=== PATIENT | male | born 1990 | race African-American/Black ===

== ENCOUNTER 2017-04-03 21:06 | Emergency (ER) | payer OTHER ==
[2017-04-03 21:19] VITALS: BP 138/87
--- NOTE | 2017-04-03 21:45 | XRAY Preliminary Report ---
Exam: XR Wrist 4 View LT IMPRESSION: Distal radius and ulna fractures without significant angulation. [facility] SITE ID: [id number]
--- NOTE | 2017-04-03 21:48 | XRAY Report ---
EXAM: LEFT WRIST RADIOGRAPHY EXAM DATE: 04/03/2017 09:32 PM. CLINICAL HISTORY: Injury to L wrist. COMPARISON: None. TECHNIQUE: 4 views. FINDINGS: Bones: Positive for an intra-articular fracture of the distal radius. There is no significant angulat ion or displacement. There is a fracture of the base of the ulnar styloid with 2 mm of displacement. Joints: No dislocation. Soft Tissues: There is generalized soft tissue swelling. IMPRESSION: Distal radius and ulna fractures without significant angulation. [facility] Referring Provider Line: [phone] SITE ID: [id number]
[2017-04-03] MEDS ORDERED: ACETAMINOPHEN 500 MG TABLET PO STA (21:53)
--- NOTE | 2017-04-03 21:55 | ED Physician Documentation ---
PD HPI UPPER EXT INJURY - Stated complaint Stated Complaint: L WRIST INJURY - Chief complaint Chief Complaint: Ext Problem - History obtained from History obtained from: Patient - History of Present Illness Location: Other (Right-handed gentleman was playing flag football tonight and fell onto an outstretched left wrist with moderate wrist and mild elbow pain on that side, no other injuries. 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[employer].) Review of Systems Constitutional: reports: Reviewed and negative Cardiac: reports: Reviewed and negative Respiratory: reports: Reviewed and negative PD PAST MEDICAL HISTORY - Past Medical History Past Medical History: No - Past Surgical History Past Surgical History: No - Present Medications Home Medications: Ambulatory Orders Medication Instructions Recorded Confirmed No Known Home Medications [No 04/03/17 04/03/17 Known Home Medications] - Allergies Allergies/Adverse Reactions: Allergies Allergy/AdvReac Type Severity Reaction Status Date / Time No Known Drug Allergies Allergy Verified 04/03/17 21:13 - Social History Does the pt smoke?: Yes Smoking Status: Current some day smoker Does the pt drink ETOH?: Yes ETOH Use: Wine, Beer, Liquor Does the pt have substance abuse?: No - Immunizations Immunizations are current?: Yes - POLST Patient has POLST: No PD ED PE NORMAL - Vitals Vital signs reviewed: Yes - General General: Alert and oriented X 3, No acute distress - Neck Neck: Supple, no meningeal sign, No bony TTP - Extremities Extremities: Other (Left elbow is mildly tender over the medial epicondyle and cannot quite straighten at the elbow. He is moderately tender over the dorsal wrist without deformity or neurovascular compromise in the hand.) - Neuro Neuro: Alert and oriented X 3, Normal speech - Psych Psych: Normal mood, Normal affect Results - Vitals Vitals: Vital Signs - 24 hr 04/03/17 21:12 Temperature 36.4 C L Heart Rate 73 Respiratory 16 Rate Blood Pressure 138/87 H O2 Saturation 100 Oxygen O2 Source Room air - Rads (name of study) Left wrist Radiology: EMP read contemporaneously (Distal radius and ulnar styloid fractures without angulation) L elbow Radiology: EMP read contemporaneously (negative) Procedures - Splint (location) Left arm Splint applied by: Tech Type of splint: Fiberglass, Long arm, Sugar tong Other: Patient tolerated well, No complications, Neurovascular intact Departure - Departure Disposition: 01 Home, Self Care Clinical Impression: Colles' fracture of left radius Qualifiers: Encounter type: initial encounter Fracture type: closed Qualified Code(s): S52.532A - Colles' fracture of left radius, initial encounter for closed fracture Sprain of elbow, left Qualifiers: Encounter type: initial encounter Qualified Code(s): S53.402A - Unspecified sprain of left elbow, initial encounter Condition: Good Record reviewed to determine appropriate education?: Yes Instructions: ED Fx Forearm Radius Ulna No Redu Requ Comments: Keep the splint on and dry,[place] CD [place]. Tylenol as needed for pain per package instructions. Your blood pressure was elevated today on check into the emergency department. This does not mean that you have hypertension, it is a common phenomenon to come to the emergency department and have elevated blood pressure. I recommend that she see your primary care physician within the week to have it rechecked when you are feeling better. Discharge Date/Time: 04/03/17 22:53
[2017-04-03] MEDS ORDERED: ACETAMINOPHEN 500 MG TABLET PO ONE (22:00)
--- NOTE | 2017-04-03 23:04 | XRAY Preliminary Report ---
Exam: XR Elbow 3 View LT IMPRESSION: 1. No acute abnormality seen in the elbow. [facility] SITE ID: [id number]
--- NOTE | 2017-04-03 23:07 | XRAY Report ---
EXAM: LEFT ELBOW RADIOGRAPHY EXAM DATE: 04/03/2017 10:31 PM. CLINICAL HISTORY: Elbow pain after injury. COMPARISON: None. TECHNIQUE: 3 views. FINDINGS: Bones: No acute fracture seen. Joints: No dislocation. Joint spaces appear intact. No joint effusion. Soft Tissues: Grossly unremarkable. IMPRESSION: 1. No acute abnormality seen in the elbow. [facility] Referring Provider Line: [phone] SITE ID: [id number]
== END 2017-04-03 22:53 | disposition home or self-care (01) ==
LOC: ED 21:06
DX: S52.532A Colles' fracture of left radius, initial encounter for closed fracture (principal); S53.402A Unspecified sprain of left elbow, initial encounter; W18.30XA Fall on same level, unspecified, initial encounter; Y93.61 Activity, american tackle football; R03.0 Elevated blood-pressure reading, without diagnosis of hypertension
CPT/HCPCS: 29105; 73080; 73110; 99283; A9270

== ENCOUNTER 2017-04-13 12:08 | Day surgery (SDC) | payer OTHER ==
[2017-04-13] MEDS ORDERED: ACETAMINOPHEN 1,000 MG/100 ML 100 ML IV ONE ×2 (13:41→17:00)
[2017-04-13] MEDS ORDERED: ceFAZolin 2 GM/50 ML 50 ML IV ONE (13:42)
[2017-04-13] MEDS ORDERED: PROPOFOL 200 MG/20 ML VIAL IVP ONE (17:00)
[2017-04-13] MEDS ORDERED: MIDAZOLAM 2 MG/2 ML VIAL IVP ONE (17:00)
[2017-04-13] MEDS ORDERED: DEXAMETHASONE 4 MG/ML VIAL IVP ONE (17:00)
[2017-04-13] MEDS ORDERED: ONDANSETRON 4 MG/2 ML VIAL IVP ONE (17:00)
[2017-04-13] MEDS ORDERED: fentaNYL 100 MCG/2 ML VIAL IVP ONE (17:00)
[2017-04-13] MEDS ORDERED: ROPIVACAINE 0.5% PF 20 ML AMPULE EP ONE (17:00)
[2017-04-13] MEDS ORDERED: LACTATED RINGERS 1,000 ML IV ONE ×3 (17:14→21:25)
--- NOTE | 2017-04-13 22:21 | XRAY Preliminary Report ---
Exam: XR Wrist 3 View LT IMPRESSION: 1. Satisfactory radial fracture fixation. 2. Mildly displaced ulnar styloid base fracture. [facility] SITE ID: [id number]
--- NOTE | 2017-04-13 22:24 | XRAY Report ---
EXAM: LEFT WRIST RADIOGRAPHY EXAM DATE: 04/13/2017 09:40 PM. CLINICAL HISTORY: Post op left wrist surgery. COMPARISON: 04/03/2017. TECHNIQUE: 3 views. FINDINGS: Bones: Plate and screws bridge a distal radial fracture. Stable mildly displaced ulnar styloid fractu re remains to cast. Joints: Normal. No subluxations. IMPRESSION: 1. Satisfactory radial fracture fixation. 2. Mildly displaced ulnar styloid base fracture. [facility] Referring Provider Line: [phone] SITE ID: [id number]
[2017-04-13 22:31] VITALS: BP 140/72
--- NOTE | 2017-04-14 20:48 | OPERATIVE REPORT ---
DATE OF SURGERY: 04/13/2017 00:00:00 PREOPERATIVE DIAGNOSIS: Left distal radius fracture, intraarticular, 3 pieces. POSTOPERATIVE DIAGNOSIS: Left distal radius fracture, intraarticular, 3 pieces. NAME OF PROCEDURE: Open reduction, internal fixation of left distal radius fracture, intraarticular, with greater than 3 fragments; CPT 54114. SURGEON: John Moreno MD [employer] SALES MANAGER: Jessica Degroot MD POSTOPERATIVE PLAN: Same day surgery discharge. Sugar-tong splint until 2 weeks. From 2-6 weeks, short arm cast. Gradual range of motion and strengthening after 6 weeks. INDICATION FOR SURGERY: This is a 27-year-old male who sustained a left distal radius fracture while playing flag football on 04/04/2017 when he fell onto his outstretched hand. He was brought to the emergency room and diagnosed and placed into a temporary splint. He was seen in clinic a few days later and a provisional reduction was attempted. He was indicated for surgery secondary to displacement greater than 2 mm of multiple articular fragments, and loss of radial height inclination and tilt. Risks, benefits, alternatives were discussed to include pain, bleeding, infection, damage to nearby structures, specifically SBRN and extensor tendons. The need for further surgery was discussed to include the need for plate removal because of tendon irritation. The risks of anesthesia were discussed up to and including . The patient agreed for surgery and signed a written consent form. SURGICAL FINDINGS 1. A large radial styloid fragment that was impacted and displaced. 2. A smaller scaphoid facet dorsal fracture which was impacted. Both of these were lifted, bone grafted, and fixed. IMPLANTS 1. Small Synthes dorsal L plate. 2. Small radial styloid plate by [employer]. 3. Eight associated screws. ANESTHESIA: General. ANTIBIOTICS: Weight-based Ancef. ESTIMATED BLOOD LOSS: 50 mL. URINE OUTPUT: Not recorded. INTRAVENOUS FLUIDS: 1600 TOURNIQUET TIME: 120 minutes at 250 mmHg. SPECIMENS: None. COMPLICATIONS: None. DISPOSITION: Stable to PACU. DEEP VENOUS THROMBOSIS PROPHYLAXIS: Early, frequent ambulation. PROCEDURE IN DETAIL: The patient was met in the preoperative hold area on the day of surgery, operative extremity was signed, consent was verified, he desired to proceed. He was brought to the operating room and surrendered to anesthesia. Once general anesthesia had been obtained, he was placed in the supine position. Prior to being brought to the operating room, the patient was given a regional block by the anesthesia team. All bony prominences were well- padded. The limb was then prepped and draped in the standard sterile fashion. A surgical time-out was held, we confirmed the patient's procedure, identity, allergies, antibiotics, and images; all were in agreement and we proceeded. An Esmarch was used to exsanguinate the limb, and the tourniquet was elevated to 250 mmHg. We began our approach to the radial styloid fragment and made a 6 cm incision overlying the radial styloid just volar to the first dorsal compartment. Branches of SBRN were protected throughout the procedure. Sharp and blunt dissection was carried down to the first dorsal compartment. Hemostasis was obtained with bipolar electrocautery. The first dorsal compartment was opened. The tendons were retracted dorsally. The floor of the first dorsal compartment was opened as well and the fracture was identified. It was disimpacted with a wide osteotome and brought out to length and a provisional pin was placed from the radial styloid down into the metaphyseal region under fluoroscopic guidance. Satisfied with this provisional reduction, we then proceeded to the dorsal fragment. A standard dorsal approach was made to the distal radius utilizing a 6 cm incision centered over the fourth compartment. Sharp and blunt dissection was carried down to the fourth compartment and it was opened. The tendons were retracted ulnarly and the third compartment was also opened. EPL was taken out of the third compartment and the floor of the third compartment was incised. We then subperiosteally dissected both radially and ulnarly under the fourth and second compartment and the fracture was visualized. The fracture involved significantly scaphoid facet down to Obi tubercle. It, too, was very impacted and a wide osteotome was used to raise it up to the joint and the carpus, and digital pressure was used to translate it volarly to the intact portions of the distal radius. A pin was used to provisionally fix it in this location. Fluoroscopy was then used to confirm positioning of our pins, as well as the position of the joint. We were unsatisfied with the position of the radial styloid at this point and that pin was removed and a repeat reduction was performed. This was done with digital pressure providing disimpacting, as well as a radial to ulnar pressure to austin it into the joint. Prior to performing the final reduction on the radial styloid, the fracture was gapped open and a view into the joint was seen. I removed any loose fragments of bone through that view, and used the irrigation to dislodge any further ones. After that, the final reduction of the radial styloid was performed. It was pinned into place and then an AP, lateral, 45-degree pronated and 45-degree supinated x-rays were taken, showing a near-anatomic reduction of the joint. Satisfied with this, we then proceeded to fit a plate onto the dorsal fragment. It was found that the Obi tubercle made it very difficult for the plate to sit flat. I therefore used an osteotome to take Obi tubercle off in 1 piece and placed on the back table for later use. Small portions of additional bone were contoured with a rongeur to ensure a flat surface for the plate. The plate was placed just outside the pin location, the position of the plate was confirmed on radiography after obtaining it into place. Satisfied with the position, we placed a screw into the shaft piece and then into the distal fragment. K-wire was then removed and a second screw was placed into the distal fragment. The second screw was locking, but the others were cortical. A final shaft screw was placed prior to placing the locking screw into the distal fragment. Satisfied with the position of all the screws and ensuring that they were just rafting the subcortical bone, we then proceeded to fixation of the radial styloid piece. A plate was selected and sized and bent to fit. The dorsal plate was also bent to fit. The radial styloid plate was pinned into place and the position was confirmed on radiographs. A shaft screw was then placed bicortically. We then placed the most distal screw rafting out of the joint surface. This was a cortical screw. We then placed an additional shaft screw and then finally 1 more distally in the fragment. The 2 distal screws, one was sent volar, one was sent dorsal to avoid hitting each other. Satisfied with the maintenance of reduction, the plate position and screw position, we then removed all provisional K wires and took final x-rays. Reduction of the fracture was maintained. We then irrigated the wound copiously , the tourniquet was dropped, hemostasis was obtained. We used the large Obi tubercle piece as bone graft and placed it under the dorsal fragment. It was found that it fit very nicely and provided structural support. Additional grafting material was placed under the radial styloid piece. Satisfied with this , a layered closure was performed. The EPL was brought out of the retinaculum, the retinaculum was closed under it to protect it from the plates. A soft tissue closure was performed on top of the dorsal plate, protecting it from the fourth compartment tendons. Brachial radialis, which had previously been released from the radial styloid piece, was brought down onto the plate and it was able to cover a large portion of the plate proximal to the styloid. This was sutured down into place and the tendons of the first compartment traveled over it. A 2-0 Vicryl was then used in the dermis and a running Monocryl was used in the skin. Steri-Strips and a sterile dressing were applied. A sugar- tong splint was then applied. The patient was awakened and transferred to the recovery room without difficulty. Flat plate x-rays in the PACU confirmed reduction and position of screws. JOB #: [id number] EXT JOB #:[id number] ANTONIETA
--- NOTE | 2017-04-14 23:41 | XRAY Report ---
EXAM: FLUOROSCOPIC GUIDANCE EXAM DATE: 04/13/2017 08:19 PM. CLINICAL HISTORY: Fracture distal radius. COMPARISON: 04/03/2017. FINDINGS: 18 spot films document placement of plate and screws bridging a distal radial fracture. IMPRESSION: Fluoroscopic guidance provided for radial fracture fixation. Total fluoroscopy time: 47 s econds. Number of images: 18. [facility] Referring Provider Line: [phone] SITE ID: [id number]
== END 2017-04-13 12:09 | disposition home or self-care (01) ==
LOC: SDS 12:08
PROVIDERS: ATTEND Orthopaedic Surgery
PROC: 0PSJ04Z Reposition Left Radius with Internal Fixation Device, Open Approach (ICD-10-PCS; principal; 2017-04-13 14:15)
DX: S52.572A Other intraarticular fracture of lower end of left radius, initial encounter for closed fracture (principal); Y93.62 Activity, american flag or touch football
CPT/HCPCS: 25609; 73110; C1713; J0131; J0690; J7120

== ENCOUNTER 2018-06-06 09:03 | Emergency (ER) | payer OTHER ==
[2018-06-06] MEDS ORDERED: DEXAMETHASONE 10 MG/ML VIAL PO STA (09:46)
--- NOTE | 2018-06-06 09:49 | ED Physician Documentation ---
PD HPI BACK PAIN - Stated complaint Stated Complaint: BACK PX - Chief complaint Chief Complaint: Back Pain - History obtained from History obtained from: Patient, Family - History of Present Illness Timing - onset: How many weeks ago (1) Timing - duration: Weeks (1) Timing - details: Gradual onset, Still present Location: Upper Quality: Pain, Spasm, Sharp, Similar to prior episodes Associated symptoms: No: Fever, Weakness, Numbness, Incontinent of urine, Unable to urinate, Hematuria, Incontinent of stool Improves with: Rest, Meds Worsened by: Movement Similar symptoms before: No diagnosis Recently seen: Not recently seen - Additional information Additional information: 28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 He does not know of any specific injury that he has had but he has been out playing football and this pain was worse with football playing. He states that last night he was not able to sleep secondary to the pain. He did take some Tylenol. He denies any other specific symptoms with the exception of the pain. Review of Systems Constitutional: denies: Fever Eyes: denies: Decreased vision Ears: denies: Ear pain Nose: denies: Congestion Throat: denies: Sore throat Cardiac: denies: Chest pain / pressure, Palpitations Respiratory: denies: Dyspnea, Cough GI: denies: Abdominal Pain, Nausea, Vomiting : denies: Dysuria, Frequency Skin: denies: Rash Musculoskeletal: reports: Back pain. denies: Neck pain, Extremity pain Neurologic: denies: Generalized weakness, Focal weakness, Numbness PD PAST MEDICAL HISTORY - Past Medical History Past Medical History: Yes Cardiovascular: None Respiratory: None Endocrine/Autoimmune: None GI: None : None HEENT: None Psych: None Musculoskeletal: Other Derm: None - Past Surgical History Past Surgical History: No - Present Medications Home Medications: Ambulatory Orders Medication Instructions Recorded Confirmed oxyCODONE/ACET 5/325 [Percocet 5 1 each PO Q4-6H 04/09/04/13/17 mg/325 mg] Cyclobenzaprine [Flexeril] 10 mg PO TID PRN #20 tablet 06/06/18 Hydrocodone/Acetaminophen 1 - 2 each PO Q6H PRN #14 tablet 06/06/18 [Hydrocodon-Acetaminophen 5-325] - Allergies Allergies/Adverse Reactions: Allergies Allergy/AdvReac Type Severity Reaction Status Date / Time No Known Drug Allergies Allergy Verified 06/06/18 09:11 - Social History Does the pt smoke?: Yes Smoking Status: Current every day smoker Does the pt drink ETOH?: Yes Does the pt have substance abuse?: No - Immunizations Immunizations are current?: Yes - POLST Patient has POLST: No PD ED PE NORMAL - Vitals Vital signs reviewed: Yes (normal ) - General General: Alert and oriented X 3, No acute distress, Well developed/nourished - HEENT HEENT: Atraumatic, PERRL, EOMI - Neck Neck: Supple, no meningeal sign, No bony TTP - Cardiac Cardiac: RRR, No murmur - Respiratory Respiratory: No respiratory distress, Clear bilaterally - Abdomen Abdomen: Soft, Non tender - Back Back: No CVA TTP, No spinal TTP, Other (There is mild tenderness to the paraspinous muscles of the upper thoracic spine ) - Derm Derm: Normal color, Warm and dry, No rash - Extremities Extremities: No deformity, No edema - Neuro Neuro: Alert and oriented X 3, quality assurance associate 2-12 intact, No motor deficit, No sensory deficit, Normal speech Eye Opening: Spontaneous Motor: Obeys Commands Verbal: Oriented GCS Score: 15 - Psych Psych: Normal mood, Normal affect Results - Vitals Vitals: Vital Signs - 24 hr 06/06/18 09:09 Temperature 35.9 C L Heart Rate 67 Respiratory 15 Rate Blood Pressure 129/72 O2 Saturation 97 Oxygen O2 Source Room air PD MEDICAL DECISION MAKING - ED course Complexity details: considered differential, d/w patient, d/w family ED course: 28-year-old male with a week plus history of rhomboid muscle strain has persistent pain he is administered dexamethasone we will place him on some Flexeril and Vicodin to be used as needed. Departure - Departure Disposition: 01 Home, Self Care Clinical Impression: Rhomboid muscle pain Condition: Stable Instructions: ED Neck Back Pain General Follow-Up: MYAH Contreras [Provider Group] Prescriptions: Cyclobenzaprine [Flexeril] 10 mg PO TID PRN #20 tablet PRN Reason: Spasms Hydrocodone/Acetaminophen [Hydrocodon-Acetaminophen 5-325] 1 - 2 each PO Q6H PRN #14 tablet PRN Reason: pain
[2018-06-06] MEDS ORDERED: CHERRY SYRUP 10 ML UDC PO ONE (09:55)
[2018-06-06 10:20] VITALS: BP 133/69
== END 2018-06-06 10:20 | disposition home or self-care (01) ==
LOC: ED 09:03
DX: M79.18 Myalgia, other site (principal); F17.200 Nicotine dependence, unspecified, uncomplicated
CPT/HCPCS: 99283; A9270

== ENCOUNTER 2019-05-06 09:55 | Emergency (ER) | payer OTHER ==
[2019-05-06 10:02] VITALS: BP 124/77
--- NOTE | 2019-05-06 10:52 | ED Physician Documentation ---
History of Present Illness - Stated complaint Stated Complaint: SORE THROAT/CHILLS - Chief complaint Chief Complaint: Heent - Additonal information Additional information: THis is a 29 year old male presenting with Sore throat, cough, general malaise for 1 day. His son was recently sick with similar symptoms but more mild. he denies measured fever, chest pain or shortness of breath. Review of Systems Constitutional: denies: Fever Throat: reports: Sore throat Cardiac: denies: Chest pain / pressure Respiratory: denies: Dyspnea GI: denies: Abdominal Pain PD PAST MEDICAL HISTORY - Past Medical History Cardiovascular: None Respiratory: None Endocrine/Autoimmune: None GI: None : None HEENT: None Psych: None Musculoskeletal: Other Derm: None - Past Surgical History Past Surgical History: No - Present Medications Home Medications: Ambulatory Orders Medication Instructions Recorded Confirmed oxyCODONE/ACET 5/325 [Percocet 5 1 each PO Q4-6H 04/09/17 04/13/17 mg/325 mg] Cyclobenzaprine [Flexeril] 10 mg PO TID PRN #20 tablet 06/06/18 Hydrocodone/Acetaminophen 1 - 2 each PO Q6H PRN #14 tablet 06/06/18 [Hydrocodon-Acetaminophen 5-325] - Allergies Allergies/Adverse Reactions: Allergies Allergy/AdvReac Type Severity Reaction Status Date / Time No Known Drug Allergies Allergy Verified 06/06/18 09:11 - Social History Does the pt smoke?: Yes Smoking Status: Current every day smoker Does the pt drink ETOH?: Yes Does the pt have substance abuse?: No - Immunizations Immunizations are current?: Yes - POLST Patient has POLST: No PD ED PE NORMAL - Vitals Vital signs reviewed: Yes - General General: Alert and oriented X 3, No acute distress - HEENT HEENT: Other (Posterior pharynx erythematous, no exudate or significant tonsillar edema.) - Neck Neck: Supple, no meningeal sign - Cardiac Cardiac: RRR - Respiratory Respiratory: Clear bilaterally - Abdomen Abdomen: Non distended - Derm Derm: Warm and dry - Extremities Extremities: No deformity - Neuro Neuro: Alert and oriented X 3 - Psych Psych: Normal mood, Normal affect Results - Vitals Vitals: Oxygen O2 Source Room air - Labs Labs: Microbiology 05/06/19 10:02 Group A Strep Throat Culture - Final Throat MIXED OROPHARYNGEAL DARIAN PRESENT. NO BETA STREP PRESENT IN CULTURE. Laboratory Tests 05/06/19 10:02 Group A Strep Rapid Negative PD MEDICAL DECISION MAKING - ED course Complexity details: considered differential (Viral syndrome, viral pharyngitis, strep throat) ED course: Patient presents with symptoms consistent with a viral URI/pharyngitis. Strep throat is unlikely by centor criteria and his rapid strep is negative. He has no signs of CLOTHING MAN or deep space infection. I discussed supportive care, PCP follow up, and return precautions. A dose of steroids given here for symptoms and patient was discharged home. Departure - Departure Disposition: Home, Self Care Clinical Impression: Viral URI Condition: Good Instructions: ED Viral Syndrome Follow-Up: Your,PCP [Other] (For follow up as needed) Comments: You appear to have a viral upper respiratory infection. We gave you a steroid here to help with your sore throat. You may take 600 mg of ibuprofen every 6 hours as needed for pain or fever, and 650 mg of Tylenol every 6 hours as needed for pain and fever. These are safe to combine together. If you develop worsening symptoms please return to the emergency department, otherwise please follow-up with your primary care provider as needed. Discharge Date/Time: 05/06/19 12:17
[2019-05-06] MEDS ORDERED: CHERRY SYRUP 10 ML UDC PO ONE (12:06)
[2019-05-06] MEDS ORDERED: DEXAMETHASONE 10 MG/ML VIAL PO STA (12:06)
== END 2019-05-06 12:17 | disposition home or self-care (01) ==
LOC: ED 09:55
DX: J06.9 Acute upper respiratory infection, unspecified (principal); F17.200 Nicotine dependence, unspecified, uncomplicated
CPT/HCPCS: 87070; 87430; 99282; 99283

== ENCOUNTER 2019-05-29 16:10 | Emergency (ER) | payer OTHER ==
[2019-05-29 16:28] VITALS: BP 122/73
--- NOTE | 2019-05-29 17:25 | ED Physician Documentation ---
PD HPI LOWER EXT INJURY - Stated complaint Stated Complaint: LT KNEE INJURY - Chief complaint Chief Complaint: Ext Problem - History obtained from History obtained from: Patient - History of Present Illness PD HPI LOW EXT INJURY LOCATION: Left (He has had anterior knee pain for a while now, it really was not bothering him at all. Today he was biking and started feeling sharp anterior knee pain that only is painful if he straightens his knee all the way. No specific injury.) Review of Systems Constitutional: reports: Reviewed and negative Cardiac: reports: Reviewed and negative Respiratory: reports: Reviewed and negative PD PAST MEDICAL HISTORY - Past Medical History Cardiovascular: None Respiratory: None Endocrine/Autoimmune: None GI: None : None HEENT: None Psych: None Musculoskeletal: Other Derm: None - Past Surgical History Past Surgical History: No - Present Medications Home Medications: Ambulatory Orders Medication Instructions Recorded Confirmed oxyCODONE/ACET 5/325 [Percocet 5 1 each PO Q4-6H 04/09/17 04/13/17 mg/325 mg] Cyclobenzaprine [Flexeril] 10 mg PO TID PRN #20 tablet 06/06/18 Hydrocodone/Acetaminophen 1 - 2 each PO Q6H PRN #14 tablet 06/06/18 [Hydrocodon-Acetaminophen 5-325] Physical Therapy 1 unit TD ONCE #1 05/29/19 - Allergies Allergies/Adverse Reactions: Allergies Allergy/AdvReac Type Severity Reaction Status Date / Time No Known Drug Allergies Allergy Verified 06/06/18 09:11 - Social History Does the pt smoke?: Yes Smoking Status: Current every day smoker Does the pt drink ETOH?: Yes Does the pt have substance abuse?: No - Immunizations Immunizations are current?: Yes - POLST Patient has POLST: No PD ED PE NORMAL - Vitals Vital signs reviewed: Yes - General General: Alert and oriented X 3, No acute distress - Extremities Extremities: Other (Left knee is nontender, he does have some subpatellar crepitance with extension consistent with Patellofemoral syndrome. No effusion. Ligamentous testing is all intact. Borderline grind testing.) - Neuro Neuro: Alert and oriented X 3, Normal speech Results - Vitals Vitals: Vital Signs - 24 hr 05/29/19 16:26 Temperature 36.9 C Heart Rate 90 Respiratory 18 Rate Blood Pressure 122/73 O2 Saturation 98 Oxygen O2 Source Room air - Rads (name of study) L knee 4v Radiology: EMP read contemporaneously (normal) PD MEDICAL DECISION MAKING - ED course ED course: Young man with what seems like patellofemoral syndrome, x-rays ligamentous testing are normal. He was given a referral for physical therapy. Departure - Departure Disposition: Home, Self Care Clinical Impression: Patellofemoral syndrome of left knee Condition: Good Record reviewed to determine appropriate education?: Yes Instructions: Patellofemoral Syndrome, ED Knee Pain UKO Prescriptions: Physical Therapy 1 unit TD ONCE #1 Comments: Ibuprofen as needed for pain. Call your doctor to arrange a follow-up appointment, make the next available appointment. In the interim, return anytime if worse or if new symptoms develop. Discharge Date/Time: 05/29/19 18:26
--- NOTE | 2019-05-29 18:14 | XRAY Report ---
Reason: knee inj Procedure Date: 05/29/2019 Accession Number: [id number] / [id number] Procedure: XR - Knee 4 View LT CPT Code: Final Report FULL RESULT: EXAM: LEFT KNEE RADIOGRAPHY EXAM DATE: 05/29/2019 05:44 PM. CLINICAL HISTORY: Knee inj. Difficulty bearing weight. COMPARISON: None. TECHNIQUE: 4 views. FINDINGS: Bones: Normal. No fractures or bone lesions. Joints: Normal. No effusion. No subluxations. Soft Tissues: Normal. No soft tissue swelling. IMPRESSION: Normal left knee radiography. [facility]
== END 2019-05-29 18:26 | disposition home or self-care (01) ==
LOC: ED 16:10
DX: M25.862 Other specified joint disorders, left knee (principal); F17.200 Nicotine dependence, unspecified, uncomplicated
CPT/HCPCS: 99282; 99283

== ENCOUNTER 2019-09-08 13:03 | Emergency (ER) | payer OTHER ==
[2019-09-08] MEDS ORDERED: CHERRY SYRUP 10 ML UDC PO ONE (15:48)
[2019-09-08] MEDS ORDERED: DEXAMETHASONE 10 MG/ML VIAL PO STA (15:48)
--- NOTE | 2019-09-08 15:51 | ED Physician Documentation ---
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 He has had this similar thing happened to him previously with weightlifting. He has a lot of spasm to the back muscles certain movements he makes cause an increase in his pain. He has not had cough or congestion he has not been otherwise ill. Review of Systems Constitutional: denies: Fever Eyes: denies: Decreased vision Ears: denies: Ear pain Nose: denies: Congestion Throat: denies: Sore throat Cardiac: denies: Chest pain / pressure, Palpitations Respiratory: denies: Dyspnea, Cough GI: denies: Abdominal Pain, Nausea, Vomiting : denies: Dysuria, Frequency Skin: denies: Rash Musculoskeletal: reports: Back pain. denies: Neck pain, Extremity pain Neurologic: denies: Generalized weakness, Focal weakness, Numbness PD PAST MEDICAL HISTORY - Past Medical History Cardiovascular: None Respiratory: None Endocrine/Autoimmune: None GI: None : None HEENT: None Psych: None Musculoskeletal: Other Derm: None - Past Surgical History Past Surgical History: No - Present Medications Home Medications: Ambulatory Orders Medication Instructions Recorded Confirmed oxyCODONE/ACET 5/325 [Percocet 5 1 each PO Q4-6H 04/09/17 04/13/17 mg/325 mg] Cyclobenzaprine [Flexeril] 10 mg PO TID PRN #20 tablet 06/06/18 Hydrocodone/Acetaminophen 1 - 2 each PO Q6H PRN #14 tablet 06/06/18 [Hydrocodon-Acetaminophen 5-325] Physical Therapy 1 unit TD ONCE #1 05/29/19 Cyclobenzaprine [Flexeril] 10 mg PO TID PRN #20 tablet 09/08/19 Hydrocodone/Acetaminophen 1 - 2 each PO Q6H PRN #14 tablet 09/08/19 [Hydrocodon-Acetaminophen 5-325] - Allergies Allergies/Adverse Reactions: Allergies Allergy/AdvReac Type Severity Reaction Status Date / Time No Known Drug Allergies Allergy Verified 09/08/19 13:10 - Social History Does the pt smoke?: Yes Smoking Status: Current every day smoker Does the pt drink ETOH?: Yes Does the pt have substance abuse?: No - Immunizations Immunizations are current?: Yes - POLST Patient has POLST: No PD ED PE NORMAL - Vitals Vital signs reviewed: Yes (normal ) - General General: Alert and oriented X 3, No acute distress, Well developed/nourished - HEENT HEENT: Atraumatic, PERRL, EOMI - Neck Neck: Supple, no meningeal sign, No bony TTP - Cardiac Cardiac: RRR, No murmur - Respiratory Respiratory: No respiratory distress, Clear bilaterally, Other (There is pain to palpation of the rhomboid muscles bilaterally. There is pain with deep inspiration over the same areas. ) - Abdomen Abdomen: Soft, Non tender - Back Back: No CVA TTP, No spinal TTP - Derm Derm: Normal color, Warm and dry, No rash - Extremities Extremities: Normal ROM s pain, No edema, No calf tenderness / cord - Neuro Neuro: Alert and oriented X 3, clay roaster 2-12 intact, No motor deficit, No sensory deficit, Normal speech Eye Opening: Spontaneous Motor: Obeys Commands Verbal: Oriented GCS Score: 15 - Psych Psych: Normal mood, Normal affect Results - Vitals Vitals: Vital Signs - 24 hr 09/08/19 13:10 Temperature 36.5 C Heart Rate 75 Respiratory 16 Rate Blood Pressure 122/78 O2 Saturation 98 Oxygen O2 Source Room air PD MEDICAL DECISION MAKING - ED course Complexity details: reviewed old records, reviewed results, re-evaluated patient, considered differential, d/w patient, d/w family ED course: 29-year-old male who is had a similar episode about 15 months ago recovered un eventfully. He does have a rhomboid muscle spasm he was previously treated with dexamethasone and pain medication muscle relaxant he does not even recall this prior problem. Departure - Departure Disposition: 01 Home, Self Care Clinical Impression: Rhomboid muscle pain Condition: Stable Instructions: ED Spasm Back No Trauma [facility] Prescriptions: Cyclobenzaprine [Flexeril] 10 mg PO TID PRN #20 tablet PRN Reason: Spasms Hydrocodone/Acetaminophen [Hydrocodon-Acetaminophen 5-325] 1 - 2 each PO Q6H PRN #14 tablet PRN Reason: pain Forms: Activity restrictions
[2019-09-08 16:10] VITALS: BP 125/71
== END 2019-09-08 16:08 | disposition home or self-care (01) ==
LOC: ED 13:03
DX: M79.18 Myalgia, other site (principal); X50.0XXA Overexertion from strenuous movement or load, initial encounter; F17.200 Nicotine dependence, unspecified, uncomplicated
CPT/HCPCS: 99282; 99283; A9270